=== PATIENT | female | born 2000 | race Two or more races ===

== ENCOUNTER 2024-10-19 00:37 | Emergency (ER) | payer OTHER ==
[~2024-10-19] VITALS: Ht 165.1 cm; Wt 82.4 kg
[2024-10-19 01:36] VITALS: BP 124/76; PULSE 104; RESP 20; TEMP 98.4; O2SAT 97
[2024-10-19] MEDS ORDERED: FLUO0.054 TOP (02:03)
--- NOTE | 2024-10-19 02:04 | ED.PDOC ---
History of Present Illness(SKN HPI Comments 24-year-old female presents to ER with complaints of rash x3 days. Patient with past medical history significant for eczema reports that she has been experiencing an "eczema" flare-up to bilateral hands x3 days. Reports that she has been using topical triamcinolone cream without relief. She reports 8/10 burning/itching pain to bilateral hands. Denies fever, body aches, chills, bleeding/skin drainage or any further symptoms/complaints Chief Complaint: Rash Time Seen by MD: 00:40 Primary Care Provider: UNKNOWN History of Present Illness: Nurses Notes, Medications, Allergies Allergies: Coded Allergies: NO KNOWN ALLERGIES (Unverified , 10/19/24) Home Meds Active Scripts Fluocinonide (Fluocinonide) 0.05 % Oin, 1 APPLIC TOP BID PRN, #1 CRE 0 Refills Prov:YAYO GEORGE 10/19/24 Information Source: Patient Mode of Arrival: Ambulatory Past Medical History Past Medical History (Other): Eczema Surgical History: Denies all surgeries Family History Family History: Unknown Social History Smoker: Non-Smoker Alcohol: Occasionally Drugs: Marijuana Lives In: Home Constitutional: denies: chills, diaphoresis, fatigue, fever, malaise, sweats, weakness, others EENTM: denies: blurred vision, double vision, ear bleeding, ear discharge, ear drainage, ear pain, ear ringing, eye pain, eye redness, hearing loss, mouth pain, mouth swelling, nasal discharge, nose bleeding, nose congestion, nose pain, photophobia, tearing, throat pain, throat swelling, voice changes, others Respiratory: denies: cough, hemoptysis, orthopnea, SOB at rest, shortness of breath, SOB with excertion, stridor, wheezing, others Cardiovascular: denies: chest pain, dizzy spells, diaphoresis, Dyspnea on exertion, edema, irregular heart beat, left arm pain, lightheadedness, palpitations, PND, syncope, others Gastrointestinal: denies: abdomen distended, abdominal pain, blood streaked bowels, constipated, diarrhea, dysphagia, difficulty swallowing, hematemesis, melena, nausea, poor appetite, poor fluid intake, rectal bleeding, rectal pain, vomiting, others Genitourinary: denies: abnormal vagina bleeding, burning, dyspareunia, dysuria, flank pain, frequency, hematuria, incontinence, pain, , vagina discharge, urgency, others Neurological: denies: dizziness, fainting, headache, left sided numbness, left sided weakness, numbness, paresthesia, pre-existing deficit, right sided numbness, right sided weakness, seizure, speech problems, tingling, tremors, weakness, others Musculoskeletal: denies: back pain, gout, joint pain, joint swelling, muscle pain, muscle stiffness, neck pain, others Integumetry: reports: others (As stated in HPI) Allergic/Immunocompromised: reports: others (As stated in HPI) Hematologic/Lymphatic: denies: anemia, blood clots, easy bleeding, easy bruising, swollen glands, others Endocrine: denies: excessive hunger, excessive sweating, excessive thirst, excessive urination, flushing, intolerance to cold, intolerance to heat, unexpla ined weight gain, unexplained weight loss, others Psychiatric: denies: anxiety, bipolar disorder, depression, hopeless, panic disorder, schizophrenia, sleepless, suicidal, others Physical Exam General Appearance: No Apparent Distress HEENT: PERRL/EOMI Neck: Full Range of Motion, Non-Tender, Normal Respiratory: Chest Non-Tender, Lungs Clear, No Accessory Muscle Use, No Respiratory Distress, Normal Breath Sounds Cardiovascular: No Murmur, No Gallop, Regular Rate/Rhythm Breast Exam: Deferred Gastrointestinal: NOT DONE Genitalia: Deferred Pelvic: Deferred Rectal: Deferred Extremities: Normal capillary refill, Normal range of motion Neurologic: Alert, No Motor Deficits, Normal Affect, Normal Mood, No Sensory Deficits Cerebellar Function: Normal Reflexes: Normal Skin: Dry, Warm, Other (lichenified lesions noted to several fingers of bilateral hands. No erythema, crusting, weeeping/drainage noted. Patient able to fully move all fingers of bilateral hands. Pulses intact) Lymphatic: No Adenopathy Was a procedure done? 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 Patient verbalized understanding and agreeable with current plan of care Advised to return to ER immediately if symptoms worsen Time of 1ST Reevaluation: 01:40 Reevaluation 1ST: N/A Patient Education/Counseling: Diagnosis, Treatment, Prognosis, Need For Follow Up Family Education/Counseling: No Family Present Departure 1 Departure Time of Disposition: 02:00 Impression: Primary Impression: Atopic dermatitis Qualified Codes: L20.9 - Atopic dermatitis, unspecified Disposition: 01 HOME / SELF CARE / HOMELESS Condition: Stable e-Prescriptions Fluocinonide (Fluocinonide) 0.05 % Oin 1 APPLIC TOP BID PRN, #1 CRE 0 Refills Prov: YAYO GEORGE 10/19/24 Discharged With: Self Critical Care Note Critical Care Time?: No Stability Stability form required: No Heart Score Heart Score: Heart Score Response (Comments) Value History N/A 0 EKG N/A 0 Age N/A 0 Risk Factors N/A 0 Troponin N/A 0 Total 0 YAYO GEORGE Oct 19, 2024 02:04
[2024-10-19] MEDS: methylPREDNISolone SOD SUCC 125 MG/2 ML VL IM ONE (02:17)
== END 2024-10-19 02:28 | disposition home or self-care (01) ==
LOC: ER 00:37
DX: L20.9 Atopic dermatitis, unspecified (principal)
CPT/HCPCS: 96372; 99283; J2919